=== PATIENT | female | born 1940 | race Caucasian/White ===

== ENCOUNTER 2024-06-18 18:51 | Emergency (ER) | payer MEDICARE ==
[~2024-06-18] VITALS: Ht 157.5 cm; Wt 74.4 kg
[2024-06-18 19:24] LABS: BASOPHILS # (AUTO) 0.08 K/uL (0.00-0.20); EOSINOPHILS # (AUTO) 0.23 K/uL (0.00-0.70); EOSINOPHILS % (AUTO) 2.9 % (0.0-8.0); HEMATOCRIT 42.4 % (36-48); IMMATURE GRANULOCYTE ABSOLUTE 0.02 K/uL (0-1); LYMPHOCYTES # (AUTO) 2.8 K/uL (1.0-4.8); LYMPHOCYTES % (AUTO) 34.2 % (21.0-51.0); MEAN CORPUSCULAR HEMOGLOBIN 29.9 pg (27.0-33.0); MEAN CORPUSCULAR HGB CONC 33.7 g/dL (32.0-36.0); MEAN CORPUSCULAR VOLUME 88.7 fL (79-99); MONOCYTES # (AUTO) 0.5 K/uL (0.1-1.0); MONOCYTES % (AUTO) 6.7 % (3.0-13.0); NEUTROPHILS # (AUTO) 4.4 K/uL (1.8-7.7); PLATELET COUNT (AUTO) 283 K/uL (130-400); RED BLOOD CELL COUNT(AUTO) 4.78 MIL/uL (4.00-5.50); RED CELL DISTRIBUTION WIDTH 12.6 % (11.0-15.5); WHITE BLOOD COUNT (AUTO) 8.1 K/uL (4.8-10.8)
--- NOTE | 2024-06-18 19:44 | ERN ---
General Chief Complaint: Palpitations Stated Complaint: PALIPITATIONS Time Seen by MD: 19:15 Source: patient History of Present Illness Initial Comments Patient is an 83-year-old female with a history of atrial fibrillation that occurs intermittently and often resolve spontaneously. Today she noticed it while she was walking and it seemed to be at a higher rate than usual and persisting longer than usual so she comes to the emergency room. The initial EKG shows atrial fibrillation at a rate of 120. No ST elevations. Patient takes 12.5 mg b.i.d. of metoprolol. And additional doses PRN. She took an additional dose and her heart rate has been slowing down. Past medical history includes hypertension hypercholesterolemia diabetes type 2. Allergies: Coded Allergies: Penicillins (Unverified Allergy, Unknown, 06/18/24) Sulfa (Sulfonamide Antibiotics) (Unverified Allergy, Unknown, 06/18/24) guaifenesin (Unverified Allergy, Unknown, 06/18/24) Past Medical History Past Medical History: Diabetes-Type II, High Cholesterol, Heart Disease, Hypertension Past Surgical History: Hysterectomy, Cholecystectomy Surgical History Other: SHOULDER Constitutional: (-) chills, (-) diaphoresis, (-) fever, (-) malaise, (-) weakness, (-) other documentation EENTM: (-) eye pain, (-) blurred vision, (-) tearing, (-) double vision, (-) ear pain, (-) ear discharge, (-) nose pain, (-) nose congestion, (-) throat pain, (-) Throat swelling, (-) mouth pain, (-) tooth pain, (-) mouth swelling, (-) other documentation Respiratory: (-) cough, (-) orthopnea, (-) short of breath, (-) stridor, (-) wheezing, (-) other documentation Cardiovascular: (-) chest pain, (-) edema, (-) palpitations, (-) syncope, (-) dyspnea on exertion, (-) other documentation Gastrointestinal/Abdominal: (-) nausea, (-) vomiting, (-) diarrhea, (-) ab dominal pain, (-) abdominal distention, (-) constipation, (-) rectal bleeding, (-) dark stool/melena, (-) other documentation Musculoskeletal: (-) Neck pain, (-) back pain, (-) Flank Pain, (-) joint pain, (-) joint swelling, (-) muscle pain, (-) muscle stiffness, (-) gout, (-) other documentation Skin: (-) laceration, (-) contusion, (-) abrasion, (-) abscess, (-) rash, (-) change in color, (-) change in hair, (-) change in nails, (-) diaphoresis, (-) dryness, (-) other documentation Neuro: (-) altered mental status, (-) headache, (-) syncope, (-) paralysis, (-) numbness, (-) seizure, (-) pre-existing deficit, (-) tremors, (-) weakness, (-) dizziness, (-) slurred speech, (-) vertigo, (-) other documentation Physical Exam General Appearance: (+) no apparent distress Orientation: (+) alert, (+) oriented x 3 Eye: bilateral eye normal inspection, bilateral eye PERRL, bilateral eye EOMI Ear, Nose, Throat: (+) hearing grossly normal, (+) normal ENT inspection, (+) moist mucous membraine Neck: (+) normal inspection, (+) supple, (+) full range of motion, (+) no JVD Respiratory: (+) chest non-tender, (+) lungs clear, (+) well ventilated Heart: (+) regular, (+) irregular Gastrointestinal: (+) soft, (+) non-tender, (+) no organomegaly, (+) bowel sound present Back: (+) normal inspection Results Laboratory and Microbiology Lab and Micro Result Laboratory Tests Test 06/18/24 19:07 06/18/24 19:59 White Blood Count 8.1 K/uL (4.8-10.8) Red Blood Count 4.78 MIL/uL (4.00-5.50) Hemoglobin 14.3 g/dL (12.0-16.0) Hematocrit 42.4 % (36-48) Mean Corpuscular Volume 88.7 fL (79-99) Mean Corpuscular Hemoglobin 29.9 pg (27.0-33.0) Mean Corpuscular Hemoglobin Concent 33.7 g/dL (32.0-36.0) Red Cell Distribution Width 12.6 % (11.0-15.5) Platelet Count 283 K/uL (130-400) Mean Platelet Volume 10.7 fL (7.5-10.5) H Immature Granulocyte % (Auto) 0.2 % (0-1) Neutrophils (%) (Auto) 55.0 % (40.0-77.0) Lymphocytes (%) (Auto) 34.2 % (21.0-51.0) Monocytes (%) (Auto) 6.7 % (3.0-13.0) Eosinophils (%) (Auto) 2.9 % (0.0-8.0) Basophils (%) (Auto) 1.0 % (0.0-5.0) Neutrophils # (Auto) 4.4 K/uL (1.8-7.7) Lymphocytes # (Auto) 2.8 K/uL (1.0-4.8) Monocytes # (Auto) 0.5 K/uL (0.1-1.0) Eosinophils # (Auto) 0.23 K/uL (0.00-0.70) Basophils # (Auto) 0.08 K/uL (0.00-0.20) Absolute Immature Granulocyte (auto 0.02 K/uL (0-1) Nucleated Red Blood Cells 0.0 % (0.0-0.19) Sodium Level 143 mmol/L (136-145) Potassium Level 3.4 mmol/L (3.5-5.1) L Chloride Level 105 mmol/L (101-111) Carbon Dioxide Level 31 mmol/L (21-32) Blood Urea Nitrogen 12 mg/dL (7-18) Creatinine 1.0 mg/dL (0.5-1.0) Glomerular Filtration Rate Calc 56 mL/min (>90) Random Glucose 135 mg/dL (70-105) H Total Calcium 9.3 mg/dL (8.5-10.1) Magnesium Level 2.10 mg/dL (1.80-2.40) Total Creatine Kinase 59 U/L (21-232) Troponin I High Sensitivity 98 ng/L (4-50) *H B-Type Natriuretic Peptide 126 pg/mL (0-100) H Urine Color COLORLESS (YELLOW) Urine Appearance CLEAR (CLEAR) Urine pH 7.5 (5.0-8.0) Urine Specific [place] 1.004 (1.001-1.031) Urine Protein NEGATIVE mg/dL (NEGATIVE) Urine Glucose (UA) NEGATIVE mg/dL (NEGATIVE) Urine Ketones NEGATIVE mg/dL (NEGATIVE) Urine Occult Blood NEGATIVE (NEGATIVE) Urine Nitrate NEGATIVE (NEGATIVE) Urine Bilirubin NEGATIVE mg/dL (NEGATIVE) Urine Urobilinogen 0.2 mg/dL (0.2-1.0) Urine Leukocyte Esterase 25 Sha/uL (NEGATIVE) H MDM Patient in atrial fibrillation that seems to be resolving on its own. Heart rate proximally 80 in the lobby while I was doing my physical exam. I will draw standard electrolytes, UA, CBC, magnesium, troponins. Plan is to correct her electrolytes to help stabilize her heart and also to rule out possible causes of the new onset of atrial fibrillation, such as infection heart attack. 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 Patient's troponin is elevated but that is to be expected with atrial fibrillation. The value was not that high and patient has no symptoms. Her potassium was a little low I wrote for 20 mEq of potassium p.o.. She tells me that potassium always runs a little bit low and in fact she is on potassium at home. Patient can be discharged once she has had her potassium supplement. She sees her new pack worker supervisor a week from tomorrow. I told her to take a single aspirin once she gets home as she is not on a blood thinner currently ED Course Orders Procedure Category Date Status Time Vital Signs Per CPOE 06/18/24 Transmitted Routine 19:00 B-Type Natriuretic LAB 06/18/24 Complete Peptide 19:00 Chest 1vw RAD 06/18/24 Resulted 19:00 12 Lead Ekg Tracing- EKG 06/18/24 Logged Technical 19:00 Oxygen By Nc/Pulse Ox CPOE 06/18/24 Transmitted 19:00 Maintain Iv CPOE 06/18/24 Transmitted 19:00 Iv Insertion CPOE 06/18/24 Transmitted 19:00 Cardiac Monitoring CPOE 06/18/24 Transmitted 19:00 Pulse Oximetry With CPOE 06/18/24 Transmitted Vs And Prn 19:00 Cbc With Differential LAB 06/18/24 Complete 19:00 Activity: Br W/Brp CPOE 06/18/24 Transmitted With Assist 19:00 Creatine Kinase, Total LAB 06/18/24 Complete 19:00 Troponin I High LAB 06/18/24 Complete Sensitivity 19:00 Urinalysis Profile LAB 06/18/24 In Process 19:00 Basic Metabolic Panel LAB 06/18/24 Complete 19:00 Magnesium LAB 06/18/24 Complete 19:44 Potassium Bicarb/Cit PHA 06/18/24 Logged Ac 25meq (K-Lyte Ta 21:00 Current Medications Medications (Trade) Dose Ordered Sig/Heraclio Route PRN Reason Start Time Stop Time Status Last Admin Dose Admin Potassium Bicarbonate (K-Lyte Tablet Eff 25 Meq Tablet.eff) 25 meq ONCE ONCE PO 06/18/24 21:00 06/18/24 21:01 UNV Vital Signs Date Time Temp Pulse Resp B/P (MAP) Pulse Ox O2 Delivery O2 Flow Rate FiO2 06/18/24 19:59 97.9 97 17 125/85 97 Room Air* 0 21 06/18/24 18:55 97.9 129 20 141/94 97 Room Air 0 DX & DISP Disposition: Discharge Departure Impression: Primary Impression: Atrial fibrillation Condition: Stable Additional Instructions: Please take a baby aspirin once you get home. Please follow-up with your scheduled pack worker supervisor. Referrals: SELF,REFERRAL (PCP) NIKITA TORRES MD June 18, 2024 19:43
[2024-06-18 19:46] LABS: POTASSIUM 3.4 mmol/L (3.5-5.1)
[2024-06-18 19:53] LABS: B-TYPE NATRIURETIC PEPTIDE 126 pg/mL (0-100)
--- NOTE | 2024-06-18 19:58 | NUR ---
PT CARE ASSUMED AT THIS TIME
--- NOTE | 2024-06-18 20:28 | HMCIMG ---
Exam Type: CHEST 1VW Clinical Information: CHEST PAIN Comparison: None Findings: The lungs are clear of infiltrates. The heart is normal in size. The bony and soft tissue structures of the chest are unremarkable. Impression: Clear lungs.
--- NOTE | 2024-06-18 20:30 | NUR ---
ED MD CASTELAN NOTIFIED ABOUT TROPONIN LEVEL. PER ED MD CLEMENS POTSSIUM TO BE GIVEN AND PT IS READY FOR D/C.
[2024-06-18 20:34] LABS: APPEARANCE,URINE CLEAR (CLEAR); BILIRUBIN,URINE NEGATIVE (NEGATIVE); COLOR,URINE COLORLESS (YELLOW); GLUCOSE, URINE (UA) NEGATIVE (NEGATIVE); KETONES,URINE NEGATIVE (NEGATIVE); LEUKOCYTE ESTERASE ,URINE 25 Leu/uL (NEGATIVE); NITRATE,URINE NEGATIVE (NEGATIVE); OCCULT BLOOD,URINE NEGATIVE (NEGATIVE); PH,URINE 7.5 (5.0-8.0); PROTEIN,URINE NEGATIVE (NEGATIVE); UROBILINOGEN,URINE 0.2 mg/dL (0.2-1.0)
[2024-06-18 20:44] LABS: ADD UA MICROSCOPIC YES
[2024-06-18 20:49] LABS: BACTERIA,URINE RARE /HPF (None Seen); RBC,URINE 0-1 /HPF (0-1); SQUAMOUS EPITHELIAL CELL,UR RARE /HPF (0-2); WBC,URINE 0-1 /HPF (0-1)
[2024-06-18] MEDS: PoTASSium BIcarbonate/CIT AC 25 MEQ TABLET.EFF PO SCH (21:04)
[2024-06-18 21:07] VITALS: BP 150/78; PULSE 75; RESP 18; TEMP 98.1; O2SAT 97
--- NOTE | 2024-06-18 21:29 | NUR ---
INFORMATION GIVEN REGUARDING A REPLENISHMENT ASSOCIATE INFORMATION REQUESTED BY THE PT.
--- NOTE | 2024-06-19 07:52 | EKG ---
[facility] Test Date: 2024-06-18 Test Time: 18:58:31 Pat Name: KRISTEN PHIPPS Department: ED Room: Gender: F Brancher: [phone] : 1940 Requested By: JENNI THURMAN Order Number: [id number] Reading MD: Afsaneh Cook Measurements Intervals [place] Rate: 119 P: 0 FL: 0 QRS: 12 QRSD: 85 T: 59 QT: 308 QTc: 435 Interpretive Statements Atrial fibrillation Low voltage, precordial leads No previous ECG available for comparison Electronically Signed On 06-20-2024 09:18:49 CDT by Afsaneh Cook Please click the below link to view image of tracing.
== END 2024-06-18 21:38 | disposition home or self-care (01) ==
LOC: EDH 18:51
DX: I48.91 Unspecified atrial fibrillation (principal); E11.9 Type 2 diabetes mellitus without complications; E78.00 Pure hypercholesterolemia, unspecified; I10 Essential (primary) hypertension; Z88.0 Allergy status to penicillin; Z88.2 Allergy status to sulfonamides; Z90.49 Acquired absence of other specified parts of digestive tract; Z90.710 Acquired absence of both cervix and uterus
CPT/HCPCS: 36415; 71045; 80048; 81001; 82550; 83735; 83880; 84484; 85025; 93005; 99285